=== PATIENT | male | born 1975 ===

== ENCOUNTER 2017-07-22 06:34 | Day surgery (SDC) | payer OTHER ==
[~2017-07-22] VITALS: Ht 172.7 cm; Wt 83.9 kg
[2017-07-22 10:23] VITALS: BP 115/58
== END 2017-07-22 11:15 | DRG 352 ==
LOC: ORM 06:34
PROVIDERS: ATTEND Surgery
PROC: 0YU60JZ Supplement Left Inguinal Region with Synthetic Substitute, Open Approach (ICD-10-PCS; principal; 2017-07-22)
DX: K40.30 Unilateral inguinal hernia, with obstruction, without gangrene, not specified as recurrent (principal)